=== PATIENT | female | born 1940 | race Caucasian/White ===

== ENCOUNTER 2016-08-09 08:59 | Outpatient (CLI) | payer MEDICARE, BC ==
[2016-08-09 09:58] LABS: #Basophils 0.1 thou/uL (0.0-0.2); #Eosinphils 0.2 thou/uL (0.0-0.7); #Lymphocytes 2.8 thou/uL (1.20-3.40); #Monocytes 0.6 thou/uL (0.11-0.59); #Neutrophils 3.2 thou/uL (1.40-6.50); %Basophils 2.1 % (0.0-1.0); %Eosinophils 2.9 % (0.0-10.0); %Monocytes 8.6 % (0.0-10.0); Hematocrit 40.5 % (36.0-47.0); Mean Platelet Volume 5.9 fL (7.4-10.4); Red Blood Cell (RBC) Count 4.28 mill/uL (4.20-5.40); White Blood Cell (WBC) Count 6.9 thou/uL (4.8-10.8)
[2016-08-09 10:18] LABS: ALT (SGPT) 17 U/L (0-55); AST (SGOT) 30 U/L (5-34); Alkaline Phosphatase 99 U/L (40-150); Anion Gap 16 mmol/L (10-20); BUN (Urea Nitrogen) 25 mg/dL (9.8-20.1); Bilirubin, Total 0.4 mg/dL (0.2-1.2); Calc. Creatinine Clearance 0 mL/min (70-130); Calcium 10.2 mg/dL (7.8-10.44); Carbon Dioxide 28 mmol/L (23-31); Chloride 103 mmol/L (98-107); Estimated GFR-MDRD 41; Globulin 3.6 g/dL (2.4-3.5); LDL Cholesterol, Calculated 123 mg/dL; Protein, Total 8.3 g/dL (5.8-8.1)
[2016-08-09 10:19] LABS: Hemoglobin A1c 5.5 % (4.0-6.0)
== END 2016-08-09 09:00 | disposition home or self-care (01) ==
LOC: BURLAB 08:59
PROVIDERS: ATTEND Family Medicine
DX: E78.5 Hyperlipidemia, unspecified (principal); R73.09 Other abnormal glucose; I10 Essential (primary) hypertension
CPT/HCPCS: 36415; 80053; 80061; 83036; 85025

== ENCOUNTER 2017-02-12 12:00 | Outpatient (CLI) | payer MEDICARE, BC ==
[2017-02-12 17:05] LABS: ALT (SGPT) 18 U/L (8-55); AST (SGOT) 25 U/L (5-34); Albumin 4.8 g/dL (3.4-4.8); Alkaline Phosphatase 115 U/L (40-150); Anion Gap 19 mmol/L (10-20); BUN (Urea Nitrogen) 25 mg/dL (9.8-20.1); Bilirubin, Total 0.8 mg/dL (0.2-1.2); Calc. Creatinine Clearance 0 mL/min (70-130); Calcium 10.2 mg/dL (7.8-10.44); Carbon Dioxide 25 mmol/L (23-31); Cardiac Risk 4.2 (Less than 4.5); Chloride 101 mmol/L (98-107); Cholesterol 216 mg/dl (< 200 Desired); Estimated GFR-MDRD 43; Globulin 3.7 g/dL (2.4-3.5); Glucose 86 mg/dL (83-110); HDL Cholesterol 51 mg/dL (>60 Neg Risk); LDL Cholesterol, Calculated 124 mg/dL; Potassium 4.6 mmol/L (3.5-5.1); Protein, Total 8.5 g/dL (6.0-8.3); Sodium 140 mmol/L (136-145); Triglycerides 204 mg/dL (Less than 150)
[2017-02-12 17:21] LABS: Thyroid Stimulating Hormone 2.6959 uIU/mL (0.35-4.94)
[2017-02-12 17:47] LABS: #Basophils 0.1 thou/uL (0.0-0.2); #Eosinphils 0.2 thou/uL (0.0-0.7); #Lymphocytes 2.8 thou/uL (1.20-3.40); #Monocytes 0.4 thou/uL (0.11-0.59); #Neutrophils 6.2 thou/uL (1.40-6.50); %Basophils 1.3 % (0.0-1.0); %Eosinophils 2.4 % (0.0-10.0); %Lymphocytes 28.1 % (21.0-51.0); %Monocytes 4.5 % (0.0-10.0); %Neutrophils 63.8 % (42.0-75.0); Hemoglobin 14.5 g/dL (12.0-16.0); Mean Corpuscular HGB CONC 33.3 g/dL (32.0-36.0); Mean Corpuscular Hemoglobin 32.2 pg (27.0-31.0); Mean Corpuscular Volume 96.8 fl (81.0-99.0); Mean Platelet Volume 6.4 fL (7.4-10.4); Platelet Count 337 thou/uL (130-400); RBC Distribution Width 11.3 % (11.5-14.5); White Blood Cell (WBC) Count 9.8 thou/uL (4.8-10.8)
[2017-02-12 18:17] LABS: Hep C IgG Ab Non-Reactive (NonReactive); Hep C Index 0.13 S/CO (0-0.79)
== END 2017-02-12 12:01 | disposition home or self-care (01) ==
LOC: LABLEX 12:00
PROVIDERS: ATTEND Nurse Practitioner
DX: E78.5 Hyperlipidemia, unspecified (principal); I10 Essential (primary) hypertension; Z72.89 Other problems related to lifestyle
CPT/HCPCS: 80053; 80061; 84443; 85025; 86803

== ENCOUNTER 2017-07-29 16:39 | Emergency (ER) | payer MEDICARE, BC ==
[2017-07-29] MEDS ORDERED: Heparin 5,000 UNITS/ML VIAL ONE ×3 (17:06→17:39)
[2017-07-29 17:15] LABS: INR-International Normal Ratio 0.9; Prothrombin Time 12.1 SEC (12.0-14.7)
[2017-07-29 17:16] LABS: PTT 27.7 SEC (22.9-36.1)
[2017-07-29] MEDS ORDERED: Nitroglycerin 50 MG/250 ML BOT 250 ML ONE (17:21)
[2017-07-29 17:25] LABS: ALT (SGPT) 17 U/L (8-55); AST (SGOT) 19 U/L (5-34); Albumin 4.5 g/dL (3.4-4.8); Alkaline Phosphatase 88 U/L (40-150); Anion Gap 21 mmol/L (10-20); BUN (Urea Nitrogen) 30 mg/dL (9.8-20.1); Bilirubin, Total 0.3 mg/dL (0.2-1.2); Calc. Creatinine Clearance 0 mL/min (70-130); Calcium 9.6 mg/dL (7.8-10.44); Carbon Dioxide 21 mmol/L (23-31); Chloride 103 mmol/L (98-107); Estimated GFR-MDRD 39; Globulin 3.5 g/dL (2.4-3.5); Glucose 295 mg/dL (83-110); Potassium 3.7 mmol/L (3.5-5.1); Sodium 141 mmol/L (136-145)
[2017-07-29 17:27] LABS: CKMB 4.3 ng/mL (0-6.6); Troponin I 0.042 ng/mL (< 0.028)
[2017-07-29 17:30] LABS: Hemoglobin 13.2 g/dL (12.0-16.0); Mean Corpuscular HGB CONC 34.5 g/dL (32.0-36.0); Mean Corpuscular Hemoglobin 32.4 pg (27.0-31.0); Mean Corpuscular Volume 93.9 fl (81.0-99.0); Mean Platelet Volume 6.3 fL (7.4-10.4); Platelet Count 333 thou/uL (130-400); RBC Distribution Width 11.1 % (11.5-14.5); Red Blood Cell (RBC) Count 4.07 mill/uL (4.20-5.40); White Blood Cell (WBC) Count 11.4 thou/uL (4.8-10.8)
[2017-07-29 17:32] LABS: Band 1 % (5-11); Lymphocytes 28 % (21-51); MDiff Complete? YES; Monocytes 4 % (0-10); Neutrophil 65 % (42-75)
--- NOTE | 2017-07-29 21:39 | RAD ---
PORTABLE CHEST: Date: 07-29-17 An AP portable film at 1643 is compared to the 12-29-13 study done at [facility]. FINDINGS: The heart is mildly enlarged but unchanged in size. There has been a prior CABG. The vasculature appe ars congested today. No large effusions were seen, however. No lobar consolidation was evident. IMPRESSION: Mild congestive change. Code T POS: HOME
== END 2017-07-29 17:35 | disposition short-term general hospital (02) ==
LOC: BURERS 16:39
DX: R07.2 Precordial pain (principal); I10 Essential (primary) hypertension; Z79.899 Other long term (current) drug therapy
CPT/HCPCS: 71045; 80053; 82553; 83880; 84484; 85025; 85610; 85730; 93005; 96365; 96375; J1644

== ENCOUNTER 2018-07-13 00:37 | Emergency (ER) | payer MEDICARE, BC ==
[2018-07-13] MEDS ORDERED: traMADol HCl 50 MG TAB ONE (01:48)
--- NOTE | 2018-07-13 10:05 | RAD ---
LEFT ANKLE 3 VIEWS: Date; 07/13/18 Some soft tissue swelling is seen around the ankle. No definite fracture seen at this time. Slight os teoporosis could hide subtle injuries, so if pain persists, then delayed follow-up images might be ne eded. IMPRESSION: No acute bony finding. POS: HOME
--- NOTE | 2018-07-13 10:07 | RAD ---
LEFT HIP 2 VIEWS: Date: 07/13/18 The study was done portably and the sensitivity is low. It is difficult to see the bones well. No blessing ss fractures were identified. A zipper partially obscures portions of the left pubic ring. There is n o dislocation. The joint space is normal. Dense calcification of the femoral artery is seen. IMPRESSION: Low sensitivity study showing no acute fracture. POS: HOME
--- NOTE | 2018-07-13 10:08 | RAD ---
LEFT KNEE 3 VIEWS: Date: 07/13/18 No fracture, dislocation, or joint effusion seen. The joint space is normal in width. Vascular calcif ications are present, as well as vascular clips from prior surgery. Soft tissue calcifications are al so seen on the medial aspect of the median thigh. IMPRESSION: No acute traumatic findings. POS: HOME
== END 2018-07-13 02:20 | disposition home or self-care (01) ==
LOC: BURERS 00:37
DX: S80.212A Abrasion, left knee, initial encounter (principal); I25.10 Atherosclerotic heart disease of native coronary artery without angina pectoris; I10 Essential (primary) hypertension; Z79.891 Long term (current) use of opiate analgesic; Z79.899 Other long term (current) drug therapy; W19.XXXA Unspecified fall, initial encounter

== ENCOUNTER 2018-07-21 10:30 | Emergency (ER) | payer MEDICARE, BC ==
--- NOTE | 2018-07-21 18:56 | RAD ---
LEFT FEMUR: Date: 07-21-18 Comparison: 07-13-18 portable study of the hip. FINDINGS: No fracture of the femur was seen. The area around the hip and knee were unremarkable. If concern of a hip fracture persists, one could follow up with an MRI if possible, or CT to look for an occult inj ury. However, the current films do not suggest any area of concern. Severe arteriosclerosis involving the SFA is noted. IMPRESSION: No acute findings. POS: HOME
--- NOTE | 2018-07-21 19:05 | RAD ---
PELVIS ONE VIEW: Date: 07-21-18 FINDINGS: No fracture was appreciated. The bony pelvis and hips all appeared intact. The hip joints are symmetr ical. The pubic rings appear intact. The symphysis shows no widening or off set and the SI joints are symmetrical. The arcuate lines of the sacrum appear intact. Advanced arteriosclerotic changes are se en in the iliac and femoral arteries. IMPRESSION: No acute traumatic finding. POS: HOME
--- NOTE | 2018-07-21 19:09 | RAD ---
LEFT LEG TWO VIEWS: Date: 07-21-18 FINDINGS: The tibia and fibula appear intact. No fracture or periosteal reaction was seen. There is no joint ef fusion at the knee. The knee joint space is normal in width. No gross fractures were seen at the ankl e. IMPRESSION: No acute finding. POS: HOME
== END 2018-07-21 12:49 | disposition home or self-care (01) ==
LOC: BURERS 10:30
DX: S94.22XA Injury of deep peroneal nerve at ankle and foot level, left leg, initial encounter (principal); B02.29 Other postherpetic nervous system involvement; I25.10 Atherosclerotic heart disease of native coronary artery without angina pectoris; I25.2 Old myocardial infarction; I10 Essential (primary) hypertension; Z79.891 Long term (current) use of opiate analgesic; Z79.899 Other long term (current) drug therapy; X58.XXXA Exposure to other specified factors, initial encounter
CPT/HCPCS: 72170

== ENCOUNTER 2019-02-11 20:32 | Emergency (ER) | payer MEDICARE, BC ==
[2019-02-11 21:30] LABS: #Basophils 0.1 thou/uL (0.0-0.2); #Eosinphils 0.1 thou/uL (0.0-0.7); #Lymphocytes 2.4 thou/uL (1.20-3.40); #Monocytes 0.8 thou/uL (0.11-0.59); #Neutrophils 7.4 thou/uL (1.40-6.50); %Basophils 0.9 % (0.0-1.0); %Eosinophils 1.3 % (0.0-10.0); %Lymphocytes 22.3 % (21.0-51.0); %Monocytes 7.4 % (0.0-10.0); Hemoglobin 11.7 g/dL (12.0-16.0); Mean Corpuscular HGB CONC 33.4 g/dL (32.0-36.0); Mean Corpuscular Hemoglobin 31.7 pg (27.0-31.0); Mean Corpuscular Volume 95.1 fL (78.0-98.0); Mean Platelet Volume 5.8 fL (7.4-10.4); Platelet Count 336 thou/uL (130-400); RBC Distribution Width 11.3 % (11.5-14.5); Red Blood Cell (RBC) Count 3.68 mill/uL (4.20-5.40); White Blood Cell (WBC) Count 10.9 thou/uL (4.8-10.8)
[2019-02-11 21:34] LABS: INR-International Normal Ratio 1.3; PTT 39.1 SEC (22.9-36.1); Prothrombin Time 15.8 SEC (12.0-14.7)
[2019-02-11 21:42] LABS: ALT (SGPT) 11 U/L (8-55); AST (SGOT) 21 U/L (5-34); Albumin 4.5 g/dL (3.4-4.8); Alkaline Phosphatase 85 U/L (40-150); Anion Gap 17 mmol/L (10-20); BUN (Urea Nitrogen) 29 mg/dL (9.8-20.1); Bilirubin, Total 0.3 mg/dL (0.2-1.2); CK (CPK) 145 U/L (29-168); Calc. Creatinine Clearance 0 mL/min (70-130); Carbon Dioxide 25 mmol/L (23-31); Chloride 100 mmol/L (98-107); Estimated GFR-MDRD 35; Globulin 3.5 g/dL (2.4-3.5); Glucose 125 mg/dL (83-110); Potassium 3.7 mmol/L (3.5-5.1); Sodium 138 mmol/L (136-145)
--- NOTE | 2019-02-11 23:38 | RAD ---
PORTABLE CHEST 02/11/19 An AP portable film at 2113 is compared with a 08/26/17 study. The heart is normal in size. There is no vascular congestion or edema. No lobar infiltrate or effusio n was seen. Changes of a prior CABG are noted. IMPRESSION: No acute thoracic finding. POS: HOME
== END 2019-02-11 23:13 | disposition home or self-care (01) ==
LOC: BURERS 20:32
DX: R55 Syncope and collapse (principal); I25.10 Atherosclerotic heart disease of native coronary artery without angina pectoris; I10 Essential (primary) hypertension; Z79.01 Long term (current) use of anticoagulants; Z79.899 Other long term (current) drug therapy
CPT/HCPCS: 36415; 71045; 80053; 82550; 83605; 83735; 83880; 84484; 85025; 85610; 85730; 93005

== ENCOUNTER 2019-04-16 12:56 | Outpatient (CLI) | payer MEDICARE, BC ==
[2019-04-16 14:12] LABS: #Basophils 0.1 thou/uL (0.0-0.2); #Eosinphils 0.2 thou/uL (0.0-0.7); #Monocytes 0.5 thou/uL (0.11-0.59); #Neutrophils 4.1 thou/uL (1.40-6.50); %Basophils 0.9 % (0.0-1.0); %Eosinophils 3.1 % (0.0-10.0); %Lymphocytes 29.4 % (21.0-51.0); %Monocytes 7.6 % (0.0-10.0); Mean Corpuscular HGB CONC 34.8 g/dL (32.0-36.0); Mean Corpuscular Hemoglobin 31.9 pg (27.0-31.0); Mean Corpuscular Volume 91.6 fL (78.0-98.0); Mean Platelet Volume 6.1 fL (7.4-10.4); Platelet Count 269 thou/uL (130-400); RBC Distribution Width 11.3 % (11.5-14.5); Red Blood Cell (RBC) Count 3.12 mill/uL (4.20-5.40); White Blood Cell (WBC) Count 6.9 thou/uL (4.8-10.8)
[2019-04-16 14:15] LABS: Anion Gap 17 mmol/L (10-20); BUN (Urea Nitrogen) 27 mg/dL (9.8-20.1); Calc. Creatinine Clearance 0 mL/min (70-130); Calcium 8.7 mg/dL (7.8-10.44); Carbon Dioxide 22 mmol/L (23-31); Chloride 97 mmol/L (98-107); Estimated GFR-MDRD 38; Glucose 140 mg/dL (83-110); Potassium 3.3 mmol/L (3.5-5.1); Sodium 133 mmol/L (136-145)
--- NOTE | 2019-04-17 08:06 | RAD ---
XR Chest Pa Lat STANDARD HISTORY: Diastolic dysfunction COMPARISON: 02/11/2019 FINDINGS: Changes of median sternotomy are again seen. The heart size normal. There is mild pulmonary vascular congestion. No lobar consolidation, pneumothoraces or pleural effusions are seen. There are mild degenerative changes in the spine.
== END 2019-04-16 12:57 | disposition home or self-care (01) ==
LOC: BURRAD 12:56
PROVIDERS: ATTEND Nurse Practitioner
DX: I51.9 Heart disease, unspecified (principal)
CPT/HCPCS: 36415; 71046; 80048; 83880; 85025

== ENCOUNTER 2020-05-01 17:21 | Emergency (ER) | payer MEDICARE, BC ==
[2020-05-01] MEDS ORDERED: Ondansetron PF 4 MG/2 ML Vial ONE (17:43)
[2020-05-01] MEDS ORDERED: Nitroglycerin 0.4 MG TAB 1 EACH ONE ×2 (17:43→20:06)
[2020-05-01] MEDS ORDERED: Furosemide 100 MG/10 ML VIAL ONE (17:58)
[2020-05-01 18:00] LABS: INR-International Normal Ratio 1.9; Prothrombin Time 22.4 sec (12.0-14.7)
[2020-05-01 18:01] LABS: PTT 56.6 sec (22.9-36.1)
[2020-05-01 18:02] LABS: #Basophils 0.1 thou/uL (0.0-0.2); #Eosinphils 0.5 thou/uL (0.0-0.7); #Lymphocytes 2.2 thou/uL (1.20-3.40); #Monocytes 0.8 thou/uL (0.11-0.59); #Neutrophils 10.1 thou/uL (1.40-6.50); %Basophils 0.7 % (0.0-1.0); %Eosinophils 3.4 % (0.0-10.0); %Lymphocytes 16.2 % (21.0-51.0); %Monocytes 5.9 % (0.0-10.0); %Neutrophils 73.8 % (42.0-75.0); Hemoglobin 9.4 g/dL (12.0-16.0); Mean Corpuscular HGB CONC 32.4 g/dL (32.0-36.0); Mean Corpuscular Hemoglobin 29.6 pg (27.0-31.0); Mean Corpuscular Volume 91.4 fL (78.0-98.0); Mean Platelet Volume 5.8 fL (7.4-10.4); Platelet Count 457 thou/uL (130-400); RBC Distribution Width 15.4 % (11.5-14.5); Red Blood Cell (RBC) Count 3.17 mill/uL (4.20-5.40); White Blood Cell (WBC) Count 13.7 thou/uL (4.8-10.8)
[2020-05-01 18:27] LABS: CKMB 1.9 ng/mL (0-6.6)
[2020-05-01 18:30] LABS: ALT (SGPT) 11 U/L (8-55); AST (SGOT) 15 U/L (5-34); Alkaline Phosphatase 95 U/L (40-110); Anion Gap 21 mmol/L (10-20); BUN (Urea Nitrogen) 34 mg/dL (9.8-20.1); Bilirubin, Total 0.6 mg/dL (0.2-1.2); Calc. Creatinine Clearance 0 mL/min (70-130); Calcium 9.3 mg/dL (7.8-10.44); Carbon Dioxide 23 mmol/L (23-31); Chloride 97 mmol/L (98-107); Estimated GFR-MDRD 37; Globulin 2.9 g/dL (2.4-3.5); Glucose 102 mg/dL (83-110); Potassium 4.3 mmol/L (3.5-5.1); Protein, Total 6.9 g/dL (6.0-8.3); Sodium 137 mmol/L (136-145)
--- NOTE | 2020-05-01 20:22 | RAD ---
PORTABLE CHEST: Date: 05-01-2020 An AP portable film at 1747 is compared with a 04-16-19 study. FINDINGS: The heart is mildly enlarged. Diffuse pulmonary edema is present as well as a small left pleural effu kim. The findings suggest CHF. There has been a prior CBG. IMPRESSION: CHF. POS: HOME
== END 2020-05-01 18:36 | disposition short-term general hospital (02) ==
LOC: BURERS 17:21
DX: I11.0 Hypertensive heart disease with heart failure (principal); I50.9 Heart failure, unspecified; I20.0 Unstable angina; I48.91 Unspecified atrial fibrillation; Z95.1 Presence of aortocoronary bypass graft; Z79.899 Other long term (current) drug therapy
CPT/HCPCS: 71045; 80053; 82553; 83880; 84484; 85025; 85610; 85730; 93005; 94760; 96374; 96375; J1940; J2405